=== PATIENT | female | born 1995 | race Caucasian/White ===

== ENCOUNTER 2018-11-16 07:33 | Inpatient (IN) | payer OTHER ==
[2018-11-16] MEDS ORDERED: Lactated Ringers 1,000 ML ONE (09:37)
[2018-11-16] MEDS ORDERED: Oxytocin/Lactated Ringers 10 UNIT/1,000 ML BAG IV SCH ×2 (09:45→18:45)
[2018-11-16] MEDS ORDERED: Ondansetron 4 MG Tab.DIS PO PRN (09:45)
[2018-11-16] MEDS ORDERED: Sodium Chloride 0.9% 10 ML Syringe FLUSH PRN (09:45)
[2018-11-16] MEDS ORDERED: ePHEDrine 50 MG/ML SDV IVPUSH PRN (10:08)
[2018-11-16] MEDS ORDERED: fentaNYL 100 MCG/2 ML SDV EPIDUR PRN (10:08)
[2018-11-16] MEDS ORDERED: diphenhydrAMINE 50 MG/ML SDV IVPUSH PRN (10:08)
[2018-11-16] MEDS ORDERED: Ondansetron 4 MG/2 ML SDV IVPUSH PRN (10:08)
[2018-11-16] MEDS ORDERED: Bupivacaine/fentaNYL/NS 100 ML Bag EPIDUR SCH (10:15)
[2018-11-16] MEDS ORDERED: Nalbuphine 20 MG/ML 1 ML Syringe IVPUSH ONE (10:29)
--- NOTE | 2018-11-16 10:37 | PCM.PREANE ---
Preanesthetic Assessment - Anesthesia/Transfusion/Family Hx Anesthesia History: Prior Anesthesia Reaction (emotional while waking up) Family History of Anesthesia Reaction: No Transfusion History: No Prior Transfusion(s) - Review of Systems General: Fatigue, Malaise Pulmonary: No Symptoms Cardiovascular: Dyspnea on Exertion Gastrointestinal: Abdominal Pain (labor pain), Nausea, Vomiting Neurological: No Symptoms, Paresthesia Other: Reports: Anxiety - Physical Assessment Pulse: 66 O2 Sat by Pulse Oximetry: 97 Respiratory Rate: 16 Blood Pressure: 118/72 Temperature: 36.9 C Vital Signs: Last Vital Signs Temp 36.6 C 11/16/18 09:08 Pulse 66 11/16/18 09:26 Resp 16 11/16/18 09:08 BP 118/72 11/16/18 09:26 Pulse Ox Height: 1.75 m Weight: 107.048 kg ASA Class: 2 Mental Status: Alert & Oriented x3 Airway Class: Mallampati = 1 Dentition: Reports: Normal Dentition Thyro-Mental Finger Breadths: 3 Mouth Opening Finger Breadths: 3 ROM/Head Extension: Full Lungs: Clear to Auscultation, Normal Respiratory Effort Cardiovascular: Regular Rate, Regular Rhythm - Allergies Allergies/Adverse Reactions: Allergies Allergy/AdvReac Type Severity Reaction Status Date / Time codeine Allergy Vomiting Verified 12/16/14 16:39 - Anesthesia Plan Pre-Op Medication Ordered: None - Acknowledgements Anesthesia Type Planned: Epidural Pt an Appropriate Candidate for the Planned Anesthesia: Yes Alternatives and Risks of Anesthesia Discussed w Pt/Guardian: Yes Pt/Guardian Understands and Agrees with Anesthesia Plan: Yes PreAnesthesia Questionnaire - Past Health History Medical/Surgical History: Denies Medical/Surgical History HEENT History: Reports: Other (See Below) Other HEENT History: wears glasses or contacts Gastrointestinal History: Reports: GERD 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: Musculoskeletal History: Reports: Back Pain, Chronic (down right side), Other ( See Below) Other Musculoskeletal History: spina bifida occluda Neurological History: Reports: Other (See Below) Other Neuro History: spina bifida occluda - Past Surgical History HEENT Surgical History: Reports: Tonsillectomy - HOME MEDS Home Medications: Home Meds cephALEXin [Keflex] 500 mg PO BID #14 cap 12/16/14 [Rx] - CURRENT (IN HOUSE) MEDS Current Meds: Current Medications Diphenhydramine HCl (Benadryl) 25 mg IVPUSH Q6H PRN PRN Reason: Pruritis Ephedrine Sulfate (Ephedrine Sulfate) 5 mg IVPUSH ASDIRECTED PRN PRN Reason: Hypotension Fentanyl (Sublimaze) 100 mcg EPIDUR ONETIME PRN PRN Reason: Pain Fentanyl/Bupivacaine HCl (Fentanyl/Bupivacaine/Ns 2 Mcg-0.125% 100 Ml) 100 ml EPIDUR ASDIRECTED [facility] Lactated Ringer's (Ringers, Lactated) 1,000 mls @ 100 mls/hr IV ASDIRECTED [facility] Oxytocin/Lactated Ringer's (Pitocin In Lr 10 Units/1,000 Ml) 10 unit in 1,000 mls @ 500 mls/hr IV .CONTINUOUS [facility]AW[facility] Ondansetron HCl (Zofran Odt) 4 mg PO Q4H PRN PRN Reason: Nausea/Vomiting Ondansetron HCl (Zofran) 4 mg IVPUSH ONETIME PRN PRN Reason: Nausea/Vomiting Sodium Chloride (Saline Flush) 10 ml FLUSH ASDIRECTED PRN PRN Reason: Keep Vein Open Discontinued Medications Lactated Ringer's (Ringers, Lactated) Confirm Administered Dose 1,000 mls @ as directed .ROUTE .STK-MED ONE Stop: 11/16/18 09:38 Nalbuphine HCl (Nubain) 10 mg IVPUSH ONETIME ONE Stop: 11/16/18 10:30
[2018-11-16] MEDS: Lactated Ringers 1,000 ML IV SCH ×5 (11:16→17:31)
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
--- NOTE | 2018-11-16 21:22 | PCM.SN ---
- Free Text/Narrative Note: Hetal Is a 23-year-old 1 now para 1001 white female was admitted on the a.m. of 11/08/2018 in active labor. She is presently at 40-6/7 weeks gestational age with an NAZANIN of 11/10/2018. He is admitted with cervical change, regular contractions. Artificial rupture membranes augmentation showed stained amniotic fluid. The heart tones were generally good throughout labor with the exception of a few episodes of extended bradycardia from which these heart tones recovered nicely. She became complete at approximately 1830 hrs. She pushed for approximately 3 hours at that time was offered vacuum extraction assistance. Procedure was discussed in detail including risks benefits Cetera.. Understand and gave verbal consent. She had an epidural placed for labor and analgesia Back extractor was placed and with proximate 1-1/2 contractions the baby delivered at 3 hrs. scores were 8 and 9. Weight was 3460 g (7 lbs. 10 oz (and length was 19.5 inches. Baby delivered in an occiput anterior position.. There was 1 pop off after the baby's head was out of the canal. The patient had a midline episiotomy which was repaired in routine fashion using 3-0 Monocryl. After delivery because of meconium staining fluid the was clamped end of baby was taken to the warmer. Dr. Melo was present and managed. Bloods obtained and placenta delivered in a Up fashion, appeared intact and complete and was discarded per patient desire. Pitocin was administered after delivery of baby to facilitate increase in uterine tone and decreased bleeding. Patient is planning on nursing. As her blood loss 100 mL. Condition: Good
[2018-11-16] MEDS ORDERED: Acetaminophen 325 MG Tab PO PRN (21:39)
[2018-11-16] MEDS ORDERED: Lanolin 100% Cream 7 GM Tube TOP PRN (21:39)
[2018-11-16] MEDS ORDERED: Benzocaine/Menthol 20%-0.5% Spray 56 GM Canister TOP PRN (21:39)
[2018-11-16] MEDS ORDERED: Bupivacaine 0.25% 10 ML SDV ONE (22:00)
[2018-11-16] MEDS: Witch Hazel Medicated Pads 40/Jar TOP PRN (22:29)
[2018-11-16] MEDS: Ibuprofen 600 MG Tab PO PRN (22:45)
[2018-11-17] MEDS: Docusate Sodium 100 MG Cap PO PRN (03:20)
[2018-11-17] MEDS: Ibuprofen 600 MG Tab PO PRN ×3 (03:20→13:59)
--- NOTE | 2018-11-17 07:31 | PCM.SN ---
- Free Text/Narrative Note: PP Day one: No complaints. Baby is doing well. VSS, Afeb Abdomen is soft, NT with uterus at Umb -1 Legs NT A: PPD 1 normal recovery P: Routine PP care, Home in the next 24-48 hours
[2018-11-17] MEDS: Prenatal Multivitamin with Calcium/Folic Acid/Iron Tab PO SCH (08:33)
[2018-11-18] MEDS: Docusate Sodium 100 MG Cap PO PRN (01:15)
[2018-11-18] MEDS: Ibuprofen 600 MG Tab PO PRN (01:15)
[2018-11-18] MEDS: Witch Hazel Medicated Pads 40/Jar TOP PRN (01:16)
--- NOTE | 2018-11-18 05:14 | PCM.DCSUM1 ---
Discharge Summary - Hospital Course Free Text/Narrative:: Janna Is a 23-year-old 1 now para 1001 white female was admitted on the a.m. of 11/08/2018 in active labor. She is presently at 40-6/7 weeks gestational age with an NAZANIN of 11/10/2018. He is admitted with cervical change, regular contractions. Artificial rupture membranes augmentation showed stained amniotic fluid. The heart tones were generally good throughout labor with the exception of a few episodes of extended bradycardia from which these heart tones recovered nicely. She became complete at approximately 1830 hrs. She pushed for approximately 3 hours at that time was offered vacuum extraction assistance. Procedure was discussed in detail including risks benefits Cetera.. Understand and gave verbal consent. She had an epidural placed for labor and analgesia Back extractor was placed and with proximate 1-1/2 contractions the baby delivered at 2053 hrs. scores were 8 and 9. Weight was 3460 g (7 lbs. 10 oz (and length was 19.5 inches. Baby delivered in an occiput anterior position.. There was 1 pop off after the baby's head was out of the canal. The patient had a midline episiotomy which was repaired in routine fashion using 3-0 Monocryl. After delivery because of meconium staining fluid the was clamped end of baby was taken to the warmer. Dr. Melo was present and managed. Bloods obtained and placenta delivered in a Up fashion, appeared intact and complete and was discarded per patient desire. Pitocin was administered after delivery of baby to facilitate increase in uterine tone and decreased bleeding. Patient is planning on nursing. As her blood loss 100 mL. patient is doing very well. She has minimal lochia, is voiding well and ambulating without concerns. She is breast-feeding well. She is desiring discharge home. Diagnosis: Stroke: No - Discharge Data Discharge Date: 11/18/18 Discharge Disposition: Home, Self-Care 01 Condition: Good - Patient Instructions Diet: Regular Diet as Tolerated (Nursing diet with increased calories and Calcium as recommended) Activity: As Tolerated (No intercourse or tampons until vaginal bleeding resolves) Driving: May Drive Today Showering/Bathing: May Shower (May take a bath) Notify Provider of: Fever, Increased Pain, Swelling and Redness, Nausea and/or Vomiting - Discharge Plan Home Medications: Home Meds Acetaminophen [Tylenol] 650 mg PO Q4H PRN tablet 11/18/18 [Rx] Ibuprofen [Motrin] 600 mg PO Q4H PRN tablet 11/18/18 [Rx] Vit with Ca/FA/Iron [ Plus Iron] 1 each PO DAILY tablet [Rx] - Discharge Summary/Plan Comment DC Time >30 min.: No Discharge Summary/Plan Comment: Discharge instructions: 1. Discharge home 2. Diet, activity and follow-up discussed with patient. Recommend nursing diet with increased calories and calcium. 3. Precautions given concern increased pain, bleeding, temperature, signs/ symptoms of DVT/PE. 4. Medications per home medication was printed, discussed with and given to the patient. 5. Return to clinic-[facility]. Ortiz[facility] in 2 weeks. Diagnosis: Term -delivered Condition: Good - Patient Data Vitals - Most Recent: Last Vital Signs Temp 36.7 C 11/18/18 03:23 Pulse 71 11/18/18 03:23 Resp 12 11/18/18 03:23 BP 104/72 11/18/18 03:23 Pulse Ox 97 11/18/18 03:23 Weight - Most Recent: 107.048 kg I&O - Last 24 hours: Intake & Output 11/17/18 11/17/18 11/18/18 14:59 22:59 06:59 Intake Total 180 180 Balance 180 180 Med Orders - Current: Current Medications Acetaminophen (Tylenol) 650 mg PO Q4H PRN PRN Reason: mild pain or fever Last Admin: 11/17/18 16:17 Dose: 650 mg Benzocaine/Menthol (Dermoplast Pain Relief [place]) 0 gm TOP ASDIRECTED PRN PRN Reason: Perineal Comfort Measure Last Admin: 11/16/18 22:29 Dose: 1 applic Docusate Sodium (Colace) 100 mg PO BID PRN PRN Reason: Constipation Last Admin: 11/18/18 01:15 Dose: 100 mg Emollient Ointment (Lansinoh Hpa) 0 gm TOP ASDIRECTED PRN PRN Reason: Sore Nipples Ibuprofen (Motrin) 600 mg PO Q4H PRN PRN Reason: Mild pain or fever Last Admin: 11/18/18 01:15 Dose: 600 mg Prenat Multivit/Vp/Iron/Folic Ac ( Plus Iron) 1 each PO DAILY SHAWN Last Admin: 11/17/18 08:33 Dose: 1 each Witelise Yael (Tucks) 1 pad TOP ASDIRECTED PRN PRN Reason: Pain Last Admin: 11/18/18 01:16 Dose: 1 applic Discontinued Medications Bupivacaine HCl (Sensorcaine-Mpf 0.25%) 10 ml .ROUTE .STK-MED ONE Stop: 11/16/18 22:01 Diphenhydramine HCl (Benadryl) 25 mg IVPUSH Q6H PRN PRN Reason: Pruritis Ephedrine Sulfate (Ephedrine Sulfate) 5 mg IVPUSH ASDIRECTED PRN PRN Reason: Hypotension Fentanyl (Sublimaze) 100 mcg EPIDUR ONETIME PRN PRN Reason: Pain Last Admin: 11/16/18 10:59 Dose: 100 mcg Fentanyl/Bupivacaine HCl (Fentanyl/Bupivacaine/Ns 2 Mcg-0.125% 100 Ml) 100 ml EPIDUR ASDIRECTED [facility] Last Admin: 11/16/18 11:00 Dose: 100 ml Lactated Ringer's (Ringers, Lactated) Confirm Administered Dose 1,000 mls @ as directed .ROUTE .K-MED ONE Stop: 11/16/18 09:38 Last Admin: 11/16/18 14:02 Dose: Not Given Lactated Ringer's (Ringers, Lactated) 1,000 mls @ 100 mls/hr IV ASDIRECTED SHAWN Last Admin: 11/16/18 17:31 Dose: 100 mls/hr Oxytocin/Lactated Ringer's (Pitocin In Lr 10 Units/1,000 Ml) 10 unit in 1,000 mls @ 500 mls/hr IV .CONTINUOUS SHAWN Oxytocin/Lactated Ringer's (Pitocin In Lr 10 Units/1,000 Ml) 10 unit in 1,000 mls @ 12 mls/hr IV TITRATE SHAWN; Protocol Last Titration: 11/16/18 20:54 Dose: 500 mls/hr Nalbuphine HCl (Nubain) 10 mg IVPUSH ONETIME ONE Stop: 11/16/18 10:30 Last Admin: 11/16/18 11:18 Dose: 10 mg Ondansetron HCl (Zofran Odt) 4 mg PO Q4H PRN PRN Reason: Nausea/Vomiting Ondansetron HCl (Zofran) 4 mg IVPUSH ONETIME PRN PRN Reason: Nausea/Vomiting Sodium Chloride (Saline Flush) 10 ml FLUSH ASDIRECTED PRN PRN Reason: Keep Vein Open
[2018-11-18 10:12] VITALS: BP 117/58
[2018-11-18] MEDS: Prenatal Multivitamin with Calcium/Folic Acid/Iron Tab PO SCH (10:42)
== END 2018-11-18 11:50 | disposition home or self-care (01) | DRG 807 ==
LOC: JD.OBCHECK 07:33 → JD.OB 07:34 → JD.OBCHECK 09:45 → JD.OB 09:45 → OBSVTOIN 20:53
PROVIDERS: ADMIT Obstetrics & Gynecology; ATTEND Obstetrics & Gynecology
PROC: 0W8NXZZ Division of Female Perineum, External Approach (ICD-10-PCS; principal; 2018-11-16)
PROC: 10D07Z6 Extraction of Products of Conception, Vacuum, Via Natural or Artificial Opening (ICD-10-PCS; principal; 2018-11-16)
PROC: 10907ZC Drainage of Amniotic Fluid, Therapeutic from Products of Conception, Via Natural or Artificial Opening (ICD-10-PCS; principal; 2018-11-16)
PROC: 6A550ZT Pheresis of Cord Blood Stem Cells, Single (ICD-10-PCS; principal; 2018-11-16)
PROC: 3E0R3BZ Introduction of Anesthetic Agent into Spinal Canal, Percutaneous Approach (ICD-10-PCS; 2018-11-16)
PROC: 00HU33Z Insertion of Infusion Device into Spinal Canal, Percutaneous Approach (ICD-10-PCS; 2018-11-16)
DX: O77.0 Labor and delivery complicated by meconium in amniotic fluid (principal); Z37.0 Single live birth; O76 Abnormality in fetal heart rate and rhythm complicating labor and delivery; Z3A.40 40 weeks gestation of pregnancy; Z88.6 Allergy status to analgesic agent; Q05.9 Spina bifida, unspecified; Z87.891 Personal history of nicotine dependence; O99.344 Other mental disorders complicating childbirth; F41.9 Anxiety disorder, unspecified
CPT/HCPCS: 36415; 51701; 51702; 59025; 59409; 85025; 86592; 86850; 86900; 86901; A9270-GY; J2300; J2590; J3010; J3490; J7120

== ENCOUNTER 2021-03-14 02:14 | Inpatient (IN) | payer OTHER ==
[2021-03-14] MEDS ORDERED: Sodium Chloride 0.9% 10 ML Syringe FLUSH PRN (21:02)
[2021-03-14] MEDS ORDERED: Ondansetron 4 MG/2 ML SDV IVPUSH PRN (21:02)
[2021-03-14] MEDS ORDERED: Nalbuphine 10 MG/1 ML Vial IVPUSH PRN (21:02)
[2021-03-14] MEDS ORDERED: Oxytocin/Lactated Ringers 10 UNIT/1,000 ML BAG IV SCH ×2 (21:15)
[2021-03-14] MEDS: Lactated Ringers 1,000 ML IV SCH ×2 (21:51→23:44)
--- NOTE | 2021-03-14 22:35 | PCM.LDHP ---
L&D History of Present Illness - General Date of Service: 03/14/21 Admit Problem/Dx: Patient Status Order with Admit Dx/Problem 03/14/21 21:02 Patient Status [ADT] Routine Admission Diagnosis/Problem Admission Diagnosis/Problem 03/14/21 22:26 Janna is a 25-year-old 2 para 1-0-0-1 female presently at 39-0/7 weeks gestational age with an NAZANIN of 03/21/2021 admitted for elective induction of labor. Source of Information: Patient History Limitations: Reports: No Limitations - History of Present Illness Introduction:: Janna is a 25-year-old 2 para 1-0-0-1 female presently at 39-0/7 weeks gestational age with an NAZANIN of 03/21/2021 admitted for elective induction of labor. The procedure and process of labor and delivery including risks, benefits, alternatives of care including allowing for natural onset of labor are all discussed in detail with patient. She appears understand and wishes to proceed. 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 Patient had menarche at approximately age 11. Cycles every 30 days, regular, patient is using no control at the time of conception. Her LMP was 06/14/2020 and was certain in nature. Positive hCG was on 07/17/2020. Patient has no history of abnormal Pap smears. She has no history of STIs. Her previous obstetric history includes the followin. Male infant born 11/16/2020. 40-6/7 weeks gestational age13 hours of labo r7 pounds 10 ouncesvacuum extraction deliveryepidural usedmidline episiotomychild's name is Jewel. course: Patient was seen early in the at approximately 9 weeks and 5 days. She was seen on a very regular basis. Her vital signs remained stable throughout the care. Her fundal height growth was appropriate. Her weight increased from 197.8 pounds to 237.2 pounds for approximately a 40 pound increase. Patient had an anesthesia consult on 02/04/2021 with Hiren Lee because of her history of occult spina bifida. She has had previous epidural with last labor and delivery and wished for one at this time. Anesthesia evaluation was supportive of use of regional anesthesia/analgesia with this labor delivery. Group B strep screen is negative. Patient has a history of ADHD. EPDS score on 01/02/2021 was 3/30. She plans to breast-feed. Prequel noninvasive screen was negative. Patient has occult spina bifida which is not symptomatic. Laboratory testing in shows blood which is a positive with a negative antibody screen. First labs showed a hemoglobin of 13.2 g/dL with platelets of 291,000. She is rubella immune. RPR is nonreactive. Urine culture was negative. Hepatitis B surface antigen and HIV assays were both nega tive. Chlamydia gonorrhea portable negative. Second trimester hemoglobin is 11.7 g/dL at which time patient was advised to start on iron therapy. Platelets are 296,000. 1 hour GTT was normal at 107. Group B strep screen was negative. RPR on 01/02/2021 was nonreactive. Patient has immunizations for hepatitis A in 2007. Hepatitis B 1998. Meningococcal 2016. Allergies: Codeine derivatives which cause vomiting Medications: 1. vitamins daily Past medical history: 1. ADHD. Patient stopped taking the medication in February 2020. 2. Occult spina bifidaasymptomatic. Diagnosis made at age 14 through back x- rays. 3. History of asthma but has not used inhaler in at least 4 to 5 years. Past surgical history: 1. Tonsillectomy 2. [place] tooth extraction 3. Tear duct eye surgery Family history: Mother is alive and well. Father secondary to melanoma in 2008. 1 sister alive and well. Maternal grandfather is secondary to Parkinson's. Maternal grandmother is secondary to complications from a fall that she had. Paternal grandfather is alive but medical history unknown. Paternal grandmother is secondary to lung cancerwas a smoker. She is also hypothyroid. There is no family history of cancer, bleeding/blood clotting disorders, related issues. Maternal great grandmother had a history of Alzheimer's. Should be no father is on a blood thinner but reason for this is not certain. Social history: Patient is . She is a [id number]-eeas mom. She lives in [place], [place]. She has some college education. has been. She does not use any significance alcohol, drugs or tobacco. Review of systems: In general patient has no complaints. No significant tractions are noted. Baby has been active. Skin: Negative Lungs: No infectious symptoms or shortness of breath Cardiovascular: No chest pain or exercise intolerance Breasts: No lumps, changes in size, pain, dimpling, discharge or axillary or supraclavicular concerns. Changes associated . GI: Negative : Body habitus changes secondary to . Musculoskeletal: Negative Neurological: Negative In general the patient is well-developed, well-nourished, pleasant female of stated age in no acute distress. On last evaluation in clinic on 03/07/2021 patient's blood pressure is 110/58, weight was 237.2 pounds with pregravid weight being 197.8 pounds. Height is 5 feet 9 inches. Prepregnancy body mass index is 27.9. Skin is warm dry without lesions. HEENT, neck and back within normal limits. Lungs are clear with good breath sounds in all lung ramos. Cardiovascular exam shows regular and rhythm without murmurs. Abdomen is gravid with last fundal height in clinic at 39 cm with baby in vertex presentation. Genital exam per digital evaluation upon admission on the evening of 03/14/2001 showed cervix to be a tight 3 cm, 70% effaced, -3 station but well applied to cervix, mid position, soft.. Extremities and neurological exam are grossly within normal limits. - Related Data Allergies/Adverse Reactions: Allergies Allergy/AdvReac Type Severity Reaction Status Date / Time codeine Allergy Vomiting Verified 03/14/21 21:05 Home Medications: Home Meds Vit with Ca/FA/Iron [ Plus Iron] 1 each PO DAILY tablet 11/18/18 [Rx] Past Medical History - Past Health History Medical/Surgical History: Denies Medical/Surgical History HEENT History: Reports: Other (See Below) Other HEENT History: wears glasses or contacts Gastrointestinal History: Reports: GERD SECURITY SERGEANT History: Reports: Musculoskeletal History: Reports: Back Pain, Chronic, Other (See Below) Other Musculoskeletal History: spina bifida occluda Neurological History: Reports: Other (See Below) Other Neuro History: spina bifida occluda Psychiatric History: Reports: ADHD - Infectious Disease History Infectious Disease History: Reports: Novel Coronavirus Other Infectious Disease History: Covid in 03/2020 - Past Surgical History HEENT Surgical History: Reports: Oral Surgery, Tonsillectomy, Other (See Below) Other HEENT Surgeries/Procedures: wisdom teeth extraction Social & Family History - Family History Family Medical History: No Pertinent Family History - Tobacco Use Tobacco Use Status *Q: Former Tobacco User Used Tobacco, but Quit: Yes Month/Year Tobacco Last Used: 06/2016 Second Hand Smoke Exposure: No - Recreational Drug Use Recreational Drug Use: No H&P Review of Systems - Review of Systems: Review Of Systems: See Below L&D Exam - Exam Exam: See Below - Vital Signs Weight: 108.454 kg - Patient Data Lab Results Last 24 hrs: Laboratory Results - last 24 hr 03/14/21 03/14/21 Range/Units 21:08 21:14 WBC 11.26 H (3.98-10.04) K/mm3 RBC 4.39 (3.98-5.22) M/mm3 Hgb 13.3 D (11.2-15.7) gm/dl Hct 40.1 (34.1-44.9) % MCV 91.3 (79.4-94.8) fl MCH 30.3 (25.6-32.2) pg MCHC 33.2 (32.2-35.5) g/dl RDW Std Deviation 43.3 (36.4-46.3) fL Plt Count 251 (182-369) K/mm3 MPV 10.5 (9.4-12.3) fl Neut % (Auto) 77.3 H (34.0-71.1) % Lymph % (Auto) 14.2 L (19.3-51.7) % [place] % (Auto) 6.9 (4.7-12.5) % Eos % (Auto) 1.2 (0.7-5.8) Baso % (Auto) 0.2 (0.1-1.2) % Neut # (Auto) 8.70 H (1.56-6.13) K/mm3 Lymph # (Auto) 1.60 (1.18-3.74) K/mm3 [place] # (Auto) 0.78 H (0.24-0.36) K/mm3 Eos # (Auto) 0.14 (0.04-0.36) K/mm3 Baso # (Auto) 0.02 (0.01-0.08) K/mm3 SARS-CoV-2 RNA (RANDA) Negative (NEGATIVE) Result Diagrams: 03/14/21 21:14 - Problem List (1) 39 weeks gestation of SNOMED Code(s): 80850151 ICD Code: Z3A.39 - 39 WEEKS GESTATION OF Status: Acute Current Visit: Yes (2) ADHD SNOMED Code(s): 702764031 ICD Code: F90.9 - ATTENTION-DEFICIT HYPERACTIVITY DISORDER, UNSPECIFIED TYPE Status: Acute Current Visit: Yes (3) Occult spina bifida SNOMED Code(s): 44257519 ICD Code: Q76.0 - SPINA BIFIDA OCCULTA Status: Acute Priority: Low Current Visit: Yes (4) Asthma SNOMED Code(s): 821781394 ICD Code: J45.909 - UNSPECIFIED ASTHMA, UNCOMPLICATED Status: Acute Current Visit: Yes Qualifiers: Asthma severity: mild Asthma persistence: unspecified Asthma complication type: uncomplicated Qualified Code(s): J45.909 - Unspecified asthma, uncomplicated Problem List Initiated/Reviewed/Updated: Yes Orders Last 24hrs: Active Orders 24 hr Category Date Time Status Patient Status [ADT] Routine ADT 03/14/21 21:02 Active Activity as Tolerated [RC] PFP Care 03/14/21 21:02 Active Communication Order [RC] ASDIRECTED Care 03/14/21 21:02 Active Heart Tones [RC] ASDIRECTED Care 03/14/21 21:03 Active Non Stress Test [RC] PER UNIT ROUTINE Care 03/14/21 21:02 Active Notify Provider [RC] PFP Care 03/14/21 21:02 Active Notify Provider [RC] PRN Care 03/14/21 21:02 Active Peripheral IV Care [RC] . DIRECTED Care 03/14/21 21:03 Active Vital Signs [RC] PER UNIT ROUTINE Care 03/14/21 21:02 Active Regular Diet [DIET] Diet 03/14/21 Breakfast Active BLOOD BANK HOLD SPECIMEN [BBK] Stat Lab 03/14/21 21:02 Ordered RAPID PLASMA REAGIN,RPR [CHEM] Routine Lab 03/14/21 21:14 Received Lactated Ringers [Ringers, Lactated] 1,000 ml Med 03/14/21 21:15 Active IV ASDIRECTED Nalbuphine [Nubain] Med 03/14/21 21:02 Active 10 mg IVPUSH Q2H PRN Ondansetron [Zofran] Med 03/14/21 21:02 Active 4 mg IVPUSH Q4H PRN Oxytocin/Lactated Ringers [Pitocin in LR 10 Units/1,000 Med 03/14/21 21:15 Active ML] 10 unit in 1,000 ml IV .CONTINUOUS Oxytocin/Lactated Ringers [Pitocin in LR 10 Units/1,000 Med 03/14/21 21:15 Active ML] 10 unit in 1,000 ml IV TITRATE Sodium Chloride 0.9% [Saline Flush] Med 03/14/21 21:02 Active 10 ml FLUSH ASDIRECTED PRN Electronic Heart Tones Ext w TOCO [WOMSER] Oth 03/14/21 21:02 Ordered Routine Electronic Heart Tones Internal [WOMSER] Per Unit Ot 03/14/21 21:02 Ordered Routine Peripheral IV Insertion Adult [OM.PC] Routine Ot 03/14/21 21:02 Ordered Resuscitation Status Routine Resus Stat 03/14/21 21:02 Ordered Medication Orders Oxytocin/Lactated Ringer's (Pitocin In Lr 10 Units/1,000 Ml) 10 unit in 1,000 mls @ 12 mls/hr IV TITRATE SHAWN; Protocol Last Admin: 03/14/21 21:51 Dose: 2 munits/min, 12 mls/hr Documented by: ADRIANNA Oxytocin/Lactated Ringer's (Pitocin In Lr 10 Units/1,000 Ml) 10 unit in 1,000 mls @ 500 mls/hr IV .CONTINUOUS SHAWN Lactated Ringer's (Ringers, Lactated) 1,000 mls @ 100 mls/hr IV ASDIRECTED SHAWN Last Admin: 03/14/21 21:51 Dose: 100 mls/hr Documented by: ADRIANNA Nalbuphine HCl (Nalbuphine 10 Mg/1 Ml Vial) 10 mg IVPUSH Q2H PRN PRN Reason: Pain Ondansetron HCl (Ondansetron 4 Mg/2 Ml Sdv) 4 mg IVPUSH Q4H PRN PRN Reason: Nausea/Vomiting Sodium Chloride (Sodium Chloride 0.9% 10 Ml Syringe) 10 ml FLUSH ASDIRECTED PRN PRN Reason: Keep Vein Open Assessment/Plan Comment:: Jw Saldivar is a 25-year-old 2 para 1-0-0-1 female presently at 39-0/7 weeks gestational age with an NAZANIN of 03/21/2021 admitted for elective induction of labor. 2. Patient plans to breast-feed 3. Risk factors for the include increased weight, ADHD, history of asthma. 4. Patient is prequel noninvasive screen was negative for trisomy 21, 18 and 13. 5. Patient desires epidural in labor and delivery 6. Patient had her Tdap during the course of the on 01/02/2021. She is rubella immune. Plan: 1. AROM accomplished with resultant clear amniotic fluid. Pitocin started for induction of labor 2. Epidural per patient desire 3. Support breast-feeding decision 4. Admission labs consist of the COVID-19 test, RPR, CBC
[2021-03-14] MEDS ORDERED: ePHEDrine 50 MG/ML SDV IVPUSH PRN (23:46)
[2021-03-14] MEDS ORDERED: fentaNYL 100 MCG/2 ML SDV EPIDUR PRN (23:46)
[2021-03-14] MEDS ORDERED: diphenhydrAMINE 50 MG/ML SDV IVPUSH PRN (23:46)
[2021-03-14] MEDS ORDERED: Bupivacaine/fentaNYL/NS 100 ML Bag EPIDUR PRN (23:46)
--- NOTE | 2021-03-14 23:59 | PCM.PREANE ---
Preanesthetic Assessment - Procedure Proposed Procedure: Labor epidural - Anesthesia/Transfusion/Family Hx Anesthesia History: Prior Anesthesia Without Reaction (patient gets emotional when waking up) Family History of Anesthesia Reaction: No Transfusion History: No Prior Transfusion(s) - Review of Systems General: No Symptoms Pulmonary: No Symptoms Cardiovascular: No Symptoms Gastrointestinal: Abdominal Pain (uterine contractions) Neurological: No Symptoms Other: Reports: None - Physical Assessment NPO Status Date: 03/14/21 NPO Status Time: 18:00 Vital Signs: Last Vital Signs Temp 98.2 F 03/14/21 21:02 Pulse Resp 14 03/14/21 21:02 BP 144/79 H 03/14/21 21:02 Pulse Ox 99 03/14/21 21:02 HR 91 Height: 1.75 m Weight: 108.454 kg ASA Class: 2 Airway Class: Mallampati = 1 Dentition: Reports: Normal Dentition Thyro-Mental Finger Breadths: 3 Mouth Opening Finger Breadths: 3 ROM/Head Extension: Full Lungs: Clear to Auscultation, Normal Respiratory Effort Cardiovascular: Regular Rate, Regular Rhythm, No Murmurs - Lab Values: Laboratory Last Values WBC 11.26 K/mm3 (3.98-10.04) H 03/14/21 21:14 RBC 4.39 M/mm3 (3.98-5.22) 03/14/21 21:14 Hgb 13.3 gm/dl (11.2-15.7) D 03/14/21 21:14 Hct 40.1 % (34.1-44.9) 03/14/21 21:14 MCV 91.3 fl (79.4-94.8) 03/14/21 21:14 MCH 30.3 pg (25.6-32.2) 03/14/21 21:14 MCHC 33.2 g/dl (32.2-35.5) 03/14/21 21:14 RDW Std Deviation 43.3 fL (36.4-46.3) 03/14/21 21:14 Plt Count 251 K/mm3 (182-369) 03/14/21 21:14 MPV 10.5 fl (9.4-12.3) 03/14/21 21:14 Neut % (Auto) 77.3 % (34.0-71.1) H 09/23/21 21:14 Lymph % (Auto) 14.2 % (19.3-51.7) L 03/14/21 21:14 [place] % (Auto) 6.9 % (4.7-12.5) 03/14/21 21:14 Eos % (Auto) 1.2 (0.7-5.8) 03/14/21 21:14 Baso % (Auto) 0.2 % (0.1-1.2) 03/14/21 21:14 Neut # (Auto) 8.70 K/mm3 (1.56-6.13) H 03/14/21 21:14 Lymph # (Auto) 1.60 K/mm3 (1.18-3.74) 03/14/21 21:14 [place] # (Auto) 0.78 K/mm3 (0.24-0.36) H 03/14/21 21:14 Eos # (Auto) 0.14 K/mm3 (0.04-0.36) 03/14/21 21:14 Baso # (Auto) 0.02 K/mm3 (0.01-0.08) 03/14/21 21:14 SARS-CoV-2 RNA (RANDA) Negative (NEGATIVE) 03/14/21 21:08 - Allergies Allergies/Adverse Reactions: Allergies Allergy/AdvReac Type Severity Reaction Status Date / Time codeine Allergy Vomiting Verified 03/14/21 21:05 - Blood Blood Available: No Product(s) Available: None - Acknowledgements Anesthesia Type Planned: Epidural Pt an Appropriate Candidate for the Planned Anesthesia: Yes Alternatives and Risks of Anesthesia Discussed w Pt/Guardian: Yes Pt/Guardian Understands and Agrees with Anesthesia Plan: Yes PreAnesthesia Questionnaire - Past Health History Medical/Surgical History: Denies Medical/Surgical History HEENT History: Reports: Other (See Below) Other HEENT History: wears glasses or contacts Cardiovascular History: Reports: None Respiratory History: Reports: Asthma Gastrointestinal History: Reports: GERD Genitourinary History: Reports: None 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: Musculoskeletal History: Reports: Back Pain, Chronic, Other (See Below) Other Musculoskeletal History: spina bifida occluda Neurological History: Reports: Other (See Below) Other Neuro History: spina bifida occluda Psychiatric History: Reports: ADHD Endocrine/Metabolic History: Reports: Obesity/BMI 30+ Hematologic History: Reports: None Immunologic History: Reports: None Oncologic (Cancer) History: Reports: None Dermatologic History: Reports: None - Infectious Disease History Infectious Disease History: Reports: Novel Coronavirus Other Infectious Disease History: Covid in 03/2020 - Past Surgical History HEENT Surgical History: Reports: Oral Surgery, Tonsillectomy, Other (See Below) Other HEENT Surgeries/Procedures: wisdom teeth extraction - SUBSTANCE USE Tobacco Use Status *Q: Former Tobacco User (Quit 2017) Tobacco Use Within Last Twelve Months: No Second Hand Smoke Exposure: No Days Per Week of Alcohol Use: 0 Number of Drinks Per Day: 0 Total Drinks Per Week: 0 Recreational Drug Use History: No - HOME MEDS Home Medications: Home Meds Vit with Ca/FA/Iron [ Plus Iron] 1 each PO DAILY tablet 11/18/18 [Rx] - CURRENT (IN HOUSE) MEDS Current Meds: Current Medications Diphenhydramine HCl (Diphenhydramine 50 Mg/Ml Sdv) 25 mg IVPUSH Q6H PRN PRN Reason: pruritis Ephedrine Sulfate (Ephedrine 50 Mg/Ml Sdv) 5 mg IVPUSH ASDIRECTED PRN PRN Reason: Hypotension Fentanyl (Fentanyl 100 Mcg/2 Ml Sdv) 100 mcg EPIDUR Q3H PRN PRN Reason: Pain Fentanyl/Bupivacaine HCl (Bupivacaine/Fentanyl/Ns 100 Ml Bag) 100 ml EPIDUR ASDIRECTED PRN PRN Reason: Pain Oxytocin/Lactated Ringer's (Pitocin In Lr 10 Units/1,000 Ml) 10 unit in 1,000 mls @ 12 mls/hr IV TITRATE SHAWN; Protocol Last Titration: 03/14/21 23:20 Dose: 6 munits/min, 36 mls/hr Documented by: Oxytocin/Lactated Ringer's (Pitocin In Lr 10 Units/1,000 Ml) 10 unit in 1,000 mls @ 500 mls/hr IV .CONTINUOUS SHAWN Lactated Ringer's (Ringers, Lactated) 1,000 mls @ 100 mls/hr IV ASDIRECTED SHAWN Last Admin: 03/14/21 23:44 Dose: 100 mls/hr Documented by: Nalbuphine HCl (Nalbuphine 10 Mg/1 Ml Vial) 10 mg IVPUSH Q2H PRN PRN Reason: Pain Ondansetron HCl (Ondansetron 4 Mg/2 Ml Sdv) 4 mg IVPUSH Q4H PRN PRN Reason: Nausea/Vomiting Sodium Chloride (Sodium Chloride 0.9% 10 Ml Syringe) 10 ml FLUSH ASDIRECTED PRN PRN Reason: Keep Vein Open
[2021-03-15] MEDS: Lactated Ringers 1,000 ML IV SCH (01:36)
--- NOTE | 2021-03-15 02:37 | PCM.SN.2 ---
- Free Text/Narrative Note: Delivery note: Stage I: Janna is a 25-year-old 2 now para 2-0-0-2 female presently at 39-0/7 weeks gestational age with an NAZANIN of 03/21/2021 admitted for elective induction of labor on the evening of 03/14/2021. Cervix was 3 cm dilated 70% effaced, soft, -3 but well applied to the cervix, mid position-AROM was undertaken with resultant clear amniotic fluid. Pitocin was started. Patient made good progress. She had an epidural for labor analgesia. She achieved complete cervical dilation by approximately 0200 hrs. Contraction pattern was robust and the heart tones were reassuring throughout labor. Stage II: Janna delivered a viable, boo, female named Hien Roper at 0214 hrs. on 03/15/2021 in a direct occiput anterior position over an intact perineum. The baby weighed 3020 g (6 pounds 11 ounces), had Apgars of 8 and 9 and a length of 20.0 inches. Patient delivered baby's head after which shoulders were delivered with gentle downward and upward traction. The baby was placed on mom's abdomen after delivery and nose and mouth were bulb suctioned and the baby was dried with warm blanket. Pitocin solution of 10 units in 1000 mL rate was increased to 1000 cc an hour to increase uterine tone and decrease likelihood of uterine bleeding. The umbilical cord is allowed to pulsate for 3 minutes then was clamped x2 and cut by the baby's father Stan. Cord had 3 vessels.. Cord blood was obtained. Stage III: The placenta delivered in a Up presentation, appeared intact and complete and was discarded per patient desire. Estimated blood loss is 100 cc. Condition is good. Patient plans to breast-feed. Time Documentation
[2021-03-15] MEDS ORDERED: Witch Hazel Medicated Pads 40/Jar TOP PRN (02:41)
[2021-03-15] MEDS ORDERED: Benzocaine/Menthol 20%-0.5% Spray 78 GM Cannister TOP PRN (02:41)
[2021-03-15] MEDS ORDERED: Acetaminophen 325 MG Tab PO PRN (02:41)
[2021-03-15] MEDS ORDERED: Bupivacaine 0.25% 10 ML SDV ONE (06:00)
--- NOTE | 2021-03-15 07:42 | PCM48HPAN ---
Post Anesthesia Note - EVALUATION WITHIN 48HRS OF ANESTHETIC Vital Signs in Normal Range: Yes Patient Participated in Evaluation: Yes Respiratory Function Stable: Yes Airway Patent: Yes Cardiovascular Function Stable: Yes Hydration Status Stable: Yes Pain Control Satisfactory: Yes Nausea and Vomiting Control Satisfactory: Yes Mental Status Recovered: Yes Vital Signs: Last Vital Signs Temp 98.2 F 03/14/21 21:02 Pulse Resp 14 03/14/21 21:02 BP 144/79 H 03/14/21 21:02 Pulse Ox 99 03/14/21 21:02 - COMMENTS/OBSERVATIONS Free Text/Narrative:: no complaints- smiling
[2021-03-15] MEDS: Prenatal Multivitamin with Calcium/Folic Acid/Iron Tab PO SCH (10:45)
[2021-03-15] MEDS: Ibuprofen 600 MG Tab PO PRN ×3 (11:40→19:43)
[2021-03-15] MEDS: Docusate Sodium 100 MG Cap PO PRN (20:48)
--- NOTE | 2021-03-16 08:09 | PCM.PNPP ---
- General Info Date of Service: 03/16/21 Functional Status: Reports: Pain Controlled, Tolerating Diet, Ambulating, Urinating - Review of Systems General: Reports: No Symptoms Pulmonary: Reports: No Symptoms Cardiovascular: Reports: No Symptoms Gastrointestinal: Reports: No Symptoms Genitourinary: Reports: No Symptoms Musculoskeletal: Reports: No Symptoms Neurological: Reports: No Symptoms - General Info Date of Service: 03/16/21 - Patient Data Vital Signs - Most Recent: Last Vital Signs Temp 36.6 C 03/16/21 02:46 Pulse 90 03/16/21 02:46 Resp 14 03/16/21 02:46 BP 111/64 03/16/21 02:46 Pulse Ox 96 03/16/21 02:46 Weight - Most Recent: 108.454 kg I&O - Last 24 Hours: Intake & Output 03/15/21 03/16/21 03/16/21 22:59 06:59 14:59 Intake Total 0 Balance 0 Med Orders - Current: Current Medications Acetaminophen (Acetaminophen 325 Mg Tab) 650 mg PO Q4H PRN PRN Reason: mild pain or fever Benzocaine/Menthol (Benzocaine/Menthol 20%-0.5% Drake 78 Gm Cannister) 0 gm TOP ASDIRECTED PRN PRN Reason: Perineal Comfort Measure Last Admin: 03/15/21 04:08 Dose: 1 can Documented by: Docusate Sodium (Docusate Sodium 100 Mg Cap) 100 mg PO BID PRN PRN Reason: Constipation Last Admin: 03/15/21 20:48 Dose: 100 mg Documented by: Ibuprofen (Ibuprofen 600 Mg Tab) 600 mg PO Q4H PRN PRN Reason: Mild pain or fever Last Admin: 03/15/21 19:43 Dose: 600 mg Documented by: Prenat Multivit/[place]/Iron/Folic Ac ( Multivitamin With Calcium/Folic Acid/Iron Tab) 1 each PO DAILY SHAWN Last Admin: 03/15/21 10:45 Dose: 1 each Documented by: Inna Conley (Inna Conley Medicated Pads 40/Jar) 1 pad TOP ASDIRECTED PRN PRN Reason: Perineal Comfort Measure Last Admin: 03/15/21 04:07 Dose: 1 tub Documented by: Discontinued Medications Bupivacaine HCl (Bupivacaine 0.25% 10 Ml Sdv) 10 ml .ROUTE .STK-MED ONE Stop: 03/15/21 06:01 Diphenhydramine HCl (Diphenhydramine 50 Mg/Ml Sdv) 25 mg IVPUSH Q6H PRN PRN Reason: pruritis Ephedrine Sulfate (Ephedrine 50 Mg/Ml Sdv) 5 mg IVPUSH ASDIRECTED PRN PRN Reason: Hypotension Fentanyl (Fentanyl 100 Mcg/2 Ml Sdv) 100 mcg EPIDUR Q3H PRN PRN Reason: Pain Last Admin: 03/14/21 23:54 Dose: 100 mcg Documented by: Fentanyl/Bupivacaine HCl (Bupivacaine/Fentanyl/Ns 100 Ml Bag) 100 ml EPIDUR ASDIRECTED PRN PRN Reason: Pain Last Admin: 03/14/21 23:54 Dose: 100 ml Documented by: Oxytocin/Lactated Ringer's (Pitocin In Lr 10 Units/1,000 Ml) 10 unit in 1,000 mls @ 12 mls/hr IV TITRATE SHAWN; Protocol Last Titration: 03/15/21 00:30 Dose: 2 munits/min, 12 mls/hr Documented by: Oxytocin/Lactated Ringer's (Pitocin In Lr 10 Units/1,000 Ml) 10 unit in 1,000 mls @ 500 mls/hr IV .CONTINUOUS SHAWN Lactated Ringer's (Ringers, Lactated) 1,000 mls @ 100 mls/hr IV ASDIRECTED SHAWN Last Admin: 03/15/21 01:36 Dose: 100 mls/hr Documented by: Nalbuphine HCl (Nalbuphine 10 Mg/1 Ml Vial) 10 mg IVPUSH Q2H PRN PRN Reason: Pain Ondansetron HCl (Ondansetron 4 Mg/2 Ml Sdv) 4 mg IVPUSH Q4H PRN PRN Reason: Nausea/Vomiting Sodium Chloride (Sodium Chloride 0.9% 10 Ml Syringe) 10 ml FLUSH ASDIRECTED PRN PRN Reason: Keep Vein Open - Infant Interaction Infant Disposition, : Adel in Room with Family Interaction: Holding Infant Feeding: Breastfed ; Nursed Well Support Person: - Recovery Exam Fundal Tone: Firm Fundal Level: 1 Fingerbreadths Below Umbilicus Fundal Placement: Midline Lochia Amount: Small Lochia Color: Rubra/Red Perineum Description: Intact, Minimal Bruising/Swelling Episiotomy/Laceration: None Bladder Status: Voiding - Exam General: Alert, Oriented, Cooperative GI/Abdominal Exam: Soft, Non-Tender - Problem List & Annotations (1) 39 weeks gestation of SNOMED Code(s): 85174644 Code(s): Z3A.39 - 39 WEEKS GESTATION OF Status: Acute Current Visit: Yes (2) Vaginal delivery SNOMED Code(s): 653434123 Code(s): O80 - ENCOUNTER FOR FULL-TERM UNCOMPLICATED DELIVERY Status: Acute Current Visit: Yes - Problem List Review Problem List Initiated/Reviewed/Updated: Yes - Assessment Assessment:: PPD#1 - Plan Plan:: * Routine cares * Breast feeding * Discharge today
--- NOTE | 2021-03-16 08:12 | PCM.DCSUM1 ---
Discharge Summary - Discharge Data Discharge Date: 03/16/21 Discharge Disposition: Home, Self-Care 01 Condition: Good - Referral to Home Health Primary Care Physician: Kirill Ortiz MD - Discharge Diagnosis/Problem(s) (1) 39 weeks gestation of SNOMED Code(s): 90111901 ICD Code: Z3A.39 - 39 WEEKS GESTATION OF Status: Acute Current Visit: Yes (2) Vaginal delivery SNOMED Code(s): 410808152 ICD Code: O80 - ENCOUNTER FOR FULL-TERM UNCOMPLICATED DELIVERY Status: Acute Current Visit: Yes - Patient Summary/Data Complications: None Consults: None Recommended Follow-up Testing/Procedures: Follow up in 3 weeks for check Hospital Course: Patient admitted in active labor. Underwent uncomplicated . See delivery note. did well and was discharged home on PPD#1 - Patient Instructions Diet: Regular Diet as Tolerated Activity: As Tolerated Activity, Other: Pelvic rest for 6 weeks Driving: May Drive Today Showering/Bathing: May Shower Showering/Bathing, Other: May Bathe Notify Provider of: Fever, Increased Pain, Swelling and Redness, Drainage, Nausea and/or Vomiting - Discharge Plan *PRESCRIPTION DRUG MONITORING PROGRAM REVIEWED*: No *COPY OF PRESCRIPTION DRUG MONITORING REPORT IN PATIENT ISAEL: No Home Medications: Home Meds Vit with Ca/FA/Iron [ Plus Iron] 1 each PO DAILY tablet 11/18/18 [Rx] Docusate Sodium [Colace] 100 mg PO BID PRN cap 03/15/21 [Rx] Ibuprofen [Motrin] 600 mg PO Q4H PRN tablet 03/15/21 [Rx] Referrals: Kirill Ortiz MD [Primary Care Provider] - (2-3 weeks for check ) - Discharge Summary/Plan Comment DC Time >30 min.: No Total # of Minutes for Discharge Time: 15 - Patient Data Vitals - Most Recent: Last Vital Signs Temp 36.6 C 03/16/21 02:46 Pulse 90 03/16/21 02:46 Resp 14 03/16/21 02:46 BP 111/64 03/16/21 02:46 Pulse Ox 96 03/16/21 02:46 Weight - Most Recent: 108.454 kg I&O - Last 24 hours: Intake & Output 03/15/21 03/16/21 03/16/21 22:59 06:59 14:59 Intake Total 0 Balance 0 Med Orders - Current: Current Medications Acetaminophen (Acetaminophen 325 Mg Tab) 650 mg PO Q4H PRN PRN Reason: mild pain or fever Benzocaine/Menthol (Benzocaine/Menthol 20%-0.5% [place] 78 Gm Cannister) 0 gm TOP ASDIRECTED PRN PRN Reason: Perineal Comfort Measure Last Admin: 03/15/21 04:08 Dose: 1 can Documented by: Docusate Sodium (Docusate Sodium 100 Mg Cap) 100 mg PO BID PRN PRN Reason: Constipation Last Admin: 03/15/21 20:48 Dose: 100 mg Documented by: Ibuprofen (Ibuprofen 600 Mg Tab) 600 mg PO Q4H PRN PRN Reason: Mild pain or fever Last Admin: 03/15/21 19:43 Dose: 600 mg Documented by: Prenat Multivit/Ceiba/Iron/Folic Ac ( Multivitamin With Calcium/Folic Acid/Iron Tab) 1 each PO DAILY SHAWN Last Admin: 03/15/21 10:45 Dose: 1 each Documented by: Inna Conley (Inna Conley Medicated Pads 40/Jar) 1 pad TOP ASDIRECTED PRN PRN Reason: Perineal Comfort Measure Last Admin: 03/15/21 04:07 Dose: 1 tub Documented by: Discontinued Medications Bupivacaine HCl (Bupivacaine 0.25% 10 Ml Sdv) 10 ml .ROUTE .STK-MED ONE Stop: 03/15/21 06:01 Diphenhydramine HCl (Diphenhydramine 50 Mg/Ml Sdv) 25 mg IVPUSH Q6H PRN PRN Reason: pruritis Ephedrine Sulfate (Ephedrine 50 Mg/Ml Sdv) 5 mg IVPUSH ASDIRECTED PRN PRN Reason: Hypotension Fentanyl (Fentanyl 100 Mcg/2 Ml Sdv) 100 mcg EPIDUR Q3H PRN PRN Reason: Pain Last Admin: 03/14/21 23:54 Dose: 100 mcg Documented by: Fentanyl/Bupivacaine HCl (Bupivacaine/Fentanyl/Ns 100 Ml Bag) 100 ml EPIDUR ASDIRECTED PRN PRN Reason: Pain Last Admin: 03/14/21 23:54 Dose: 100 ml Documented by: Oxytocin/Lactated Ringer's (Pitocin In Lr 10 Units/1,000 Ml) 10 unit in 1,000 mls @ 12 mls/hr IV TITRATE SHAWN; Protocol Last Titration: 03/15/21 00:30 Dose: 2 munits/min, 12 mls/hr Documented by: Oxytocin/Lactated Ringer's (Pitocin In Lr 10 Units/1,000 Ml) 10 unit in 1,000 mls @ 500 mls/hr IV .CONTINUOUS SHAWN Lactated Ringer's (Ringers, Lactated) 1,000 mls @ 100 mls/hr IV ASDIRECTED SHAWN Last Admin: 03/15/21 01:36 Dose: 100 mls/hr Documented by: Nalbuphine HCl (Nalbuphine 10 Mg/1 Ml Vial) 10 mg IVPUSH Q2H PRN PRN Reason: Pain Ondansetron HCl (Ondansetron 4 Mg/2 Ml Sdv) 4 mg IVPUSH Q4H PRN PRN Reason: Nausea/Vomiting Sodium Chloride (Sodium Chloride 0.9% 10 Ml Syringe) 10 ml FLUSH ASDIRECTED PRN PRN Reason: Keep Vein Open
[2021-03-16 09:17] VITALS: BP 124/68; PULSE 91
[2021-03-16] MEDS: Docusate Sodium 100 MG Cap PO PRN (10:03)
[2021-03-16] MEDS: Prenatal Multivitamin with Calcium/Folic Acid/Iron Tab PO SCH (10:03)
== END 2021-03-16 10:28 | disposition home or self-care (01) | DRG 807 ==
LOC: JD.OB 02:14 → OBSVTOIN 03-15 02:14
PROVIDERS: ADMIT Obstetrics & Gynecology; ATTEND Obstetrics & Gynecology
PROC: 10E0XZZ Delivery of Products of Conception, External Approach (ICD-10-PCS; principal; 2021-03-15)
PROC: 10907ZC Drainage of Amniotic Fluid, Therapeutic from Products of Conception, Via Natural or Artificial Opening (ICD-10-PCS; 2021-03-15)
PROC: 3E033VJ Introduction of Other Hormone into Peripheral Vein, Percutaneous Approach (ICD-10-PCS; 2021-03-15)
DX: O99.62 Diseases of the digestive system complicating childbirth (principal); Z37.0 Single live birth; K21.9 Gastro-esophageal reflux disease without esophagitis; O99.52 Diseases of the respiratory system complicating childbirth; J45.909 Unspecified asthma, uncomplicated; O99.344 Other mental disorders complicating childbirth; F90.9 Attention-deficit hyperactivity disorder, unspecified type; Z20.822 Contact with and (suspected) exposure to COVID-19; Z88.5 Allergy status to narcotic agent; Z87.891 Personal history of nicotine dependence; Z3A.39 39 weeks gestation of pregnancy
CPT/HCPCS: 36415; 51702; 59025; 59409; 85025; 86592; A9270-GY; J2590; J3010; J3490; J7120; U0002